=== PATIENT | male | born 1925 | race Caucasian/White ===

== ENCOUNTER 2017-05-27 11:52 | Emergency (ER) | payer OTHER ==
[~2017-05-27] VITALS: Ht 170.2 cm; Wt 86.0 kg
[2017-05-27 11:56] VITALS: BP 139/72; PULSE 93; RESP 15; TEMP 98.7; O2SAT 99
[2017-05-27] MEDS ORDERED: SOD PHOSPHATE/SOD BIPHOSPHATE (ADULT) ENEMA 133ML RECTAL ONE (12:15)
--- NOTE | 2017-05-27 12:15 | PD ---
HPI Chief Complaint: GI Complaint Time Seen by Provider: 12:03 Travel History International Travel<30 days: No Contact w/Intl Traveler<30days: No Traveled to known affect area: No History of Present Illness HPI 89-year-old male complains of constipation and urinary retention. Patient states that he is having constipation but past 3 days. Patient started having urinary retention since last night. Patient denies any headache. Patient denies any chest pain or shortness of breath. Patient states that he has discomfort lower abdomen. Patient denies any nausea vomiting. Patient denies any dysuria or frequency. Patient denies any fever chills. Patient denies any back pain. Patient states that he has not had any change in medication recently. PFSH Past Medical History ?: Not Social History Tobacco Use: No Allergies-Medications (Allergen,Severity, Reaction): Coded Allergies: No Known Allergies (Unverified , 05/27/17) Reported Meds & Prescriptions Reported Meds & Active Scripts Active Golytely 236 gm (Polyethylene Glycol/Electrolytes) 4,000 Ml Soln 30 Ml PO Q5 MINUTES Reported Simvastatin 20 Mg Tab 20 Mg PO DAILY Lansoprazole 30 Mg Capdr 30 Mg PO DAILY Lansoprazole 15 Mg Capdr 15 Mg PO HS Fenofibrate 54 Mg Tab 54 Mg PO DAILY Glipizide 10 Mg Tab 10 Mg PO DAILY Take 30 minutes before a meal Metformin (Metformin HCl) 500 Mg Tab 500 Mg PO TIDPC With meals Review of Systems General / Constitutional: No: Fever Eyes: No: Visual changes HENT: No: Headaches Cardiovascular: No: Chest Pain or Discomfort Respiratory: No: Shortness of Breath Gastrointestinal: Positive: Abdominal Pain, Constipation Genitourinary: Positive: Decreased Urinary Output, No: Dysuria Musculoskeletal: No: Pain Skin: No Rash Neurologic: No: Weakness Psychiatric: No: Depression Endocrine: No: Polydipsia Hematologic/Lymphatic: No: Easy Bruising Physical Exam Narrative GENERAL: Well-nourished, well-developed patient. SKIN: Focused skin assessment warm/dry. HEAD: Normocephalic. EYES: No scleral icterus. No injection or drainage. NECK: Supple, trachea midline. No JVD or lymphadenopathy. CARDIOVASCULAR: Regular rate and rhythm without murmurs, gallops, or rubs. RESPIRATORY: Breath sounds equal bilaterally. No accessory muscle use. GASTROINTESTINAL: Abdomen soft, nondistended. Patient has mild tenderness on palpation lower abdomen. No rebound tenderness. No mass. Rectal exam patient has impacted stool per rectum. MUSCULOSKELETAL: No cyanosis, or edema. BACK: Nontender without obvious deformity. No CVA tenderness. Neurologic exam normal. Data Data Last Documented VS Vital Signs Date Time Temp Pulse Resp B/P Pulse Ox O2 Delivery O2 Flow Rate FiO2 05/27/17 11:56 98.7 93 15 139/72 99 Orders Fleets Enema (Adult) (Fleets Enema (Adul (05/27/17 12:15) MDM Medical Decision Making Medical Screen Exam Complete: Yes Emergency Medical Condition: Yes Differential Diagnosis Differential diagnosis including constipation, urinary retention, urinary obstruction, stool impaction. Narrative Course 89-year-old male with stool impaction and urinary retention. Fleet enema given. Procedures Procedure Narrative . Fleet Enema was given. Gentle rectal disimpaction with fingers with good success. Patient's feeling much better. Diagnosis Primary Impression: Impacted stool in rectum Patient Instructions: General Instructions Additional Instructions: GoLYTELY as needed. Follow-up with personal physician. Follow-up with GI specialist. Return if persistent problem or worse. Med/Other Pt SpecificInfo: Prescription(s) given Scripts Peg-Electrolytes (Golytely 236 gm)4,000 Ml Soln30 Ml PO Q5 MINUTES #1 CONTAINER Ref 0 Prov:Jeremias Hammond MD 05/27/17 Disposition: 01 DISCHARGE HOME Condition: Stable Jeremias Hammond MD May 27, 2017 12:15
[2017-05-27] MEDS ORDERED: METF500T PO (12:19)
[2017-05-27] MEDS ORDERED: FENO54TA PO (12:19)
[2017-05-27] MEDS ORDERED: LANS15CA PO (12:19)
[2017-05-27] MEDS ORDERED: GLIP10TA6 PO (12:19)
[2017-05-27] MEDS ORDERED: LANS30CA PO (12:20)
[2017-05-27] MEDS ORDERED: SIMV20TA PO (12:20)
[2017-05-27] MEDS ORDERED: COLY4000S PO (13:03)
== END 2017-05-27 13:10 | disposition home or self-care (01) ==
LOC: PHED 11:52
DX: K56.41 Fecal impaction (principal); R33.9 Retention of urine, unspecified
CPT/HCPCS: 99284